=== PATIENT | male | born 1950 | race Two or more races ===

== ENCOUNTER 2024-06-30 07:47 | Emergency (ER) | payer OTHER ==
[~2024-06-30] VITALS: Ht 170.2 cm; Wt 77.1 kg
[~2024-06-30 07:47] MED LIST: AMLO10 PO; ASPI81CH PO; OMEPRAZOLE20 MG PO; Zocor20 MG PO
[2024-06-30 10:15] VITALS: BP 152/82
== END 2024-06-30 10:17 | disposition home or self-care (01) ==
LOC: ER 07:47
DX: M54.6 Pain in thoracic spine (principal); M54.12 Radiculopathy, cervical region; Z88.2 Allergy status to sulfonamides; Z79.899 Other long term (current) drug therapy; Z79.82 Long term (current) use of aspirin; I10 Essential (primary) hypertension; E78.5 Hyperlipidemia, unspecified
CPT/HCPCS: 72070; 93005; 93010; 99283-25